=== PATIENT | male | born 1955 | race Caucasian/White ===

== ENCOUNTER 2017-11-22 12:42 | Emergency (ER) | payer OTHER ==
[~2017-11-22] VITALS: Ht 172.7 cm; Wt 113.3 kg
[2017-11-22 12:51] VITALS: TEMP 36.8; Ht 172.7 cm; Wt 113.3 kg
[2017-11-22] MEDS ORDERED: SITA25TA PO (13:29)
[2017-11-22] MEDS ORDERED: FURO20TA PO (13:29)
[2017-11-22] MEDS ORDERED: METF-384 PO (13:29)
[2017-11-22] MEDS ORDERED: DIPHTHERIA/TETANUS/PERTUSSIS 0.5 ML SYR/VIAL IM. ONE (13:45)
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
[2017-11-22 15:08] LABS: HEP C IGG 13 YRS+OLDER_RFLX NEG (NEG)
[2017-11-22 15:11] VITALS: BP 180/109; PULSE 98; O2SAT 94
== END 2017-11-22 15:12 | disposition home or self-care (01) ==
LOC: C.EDB 12:44 → C.EDD 15:12
DX: S50.811A Abrasion of right forearm, initial encounter (principal); Y04.8XXA Assault by other bodily force, initial encounter; Y92.148 Other place in prison as the place of occurrence of the external cause; E11.9 Type 2 diabetes mellitus without complications; Z79.899 Other long term (current) drug therapy; Z87.891 Personal history of nicotine dependence